=== PATIENT | female | born 1980 | race Caucasian/White ===

== ENCOUNTER 2017-12-12 17:47 | Inpatient (IN) | payer MEDICARE, OTHER ==
[~2017-12-12] VITALS: Ht 170.2 cm; Wt 156.0 kg
[2017-12-12] MEDS ORDERED: METH10TA2 PO (18:10)
[2017-12-12] MEDS ORDERED: DIAZ10TA PO (18:10)
[2017-12-12] MEDS ORDERED: CARI350T PO (18:10)
[2017-12-12] MEDS ORDERED: OXYC-133 PO (18:10)
[2017-12-12] MEDS ORDERED: HYDROMORPHONE 1 MG/1 ML DISP.SYRIN IV ONE ×2 (19:15→21:30)
[2017-12-12 19:39] LABS: BASOPHILS # (AUTO) 0.1 K/uL (0.0-8.0); BASOPHILS % (AUTO) 0.5 % (0.0-2.0); EOSINOPHILS # (AUTO) 0.1 K/uL (0.0-0.7); EOSINOPHILS % (AUTO) 0.8 % (0.0-7.0); HEMATOCRIT 40.8 % (31.2-41.9); HEMOGLOBIN 13.6 g/dL (10.9-14.3); LYMPHOCYTES # (AUTO) 3.5 K/uL (20.0-40.0); LYMPHOCYTES % (AUTO) 22.6 % (20.5-51.5); MEAN CORPUSCULAR HGB CONC 33 g/dL (32.3-35.6); MEAN CORPUSCULAR VOLUME 86.8 fL (75.5-95.3); MONOCYTES # (AUTO) 0.8 K/uL (2.0-10.0); MONOCYTES % (AUTO) 5.4 % (0.0-11.0); NEUTROPHILS % (AUTO) 70.7 % (38.5-71.5); PLATELET COUNT (AUTO) 350 K/uL (179-408); WHITE BLOOD COUNT (AUTO) 15.5 K/uL (3.8-11.8)
--- NOTE | 2017-12-12 19:45 | NUR ---
Xray at bedside.
[2017-12-12 19:46] LABS: CREATININE 0.9 mg/dL (0.6-1.3); POTASSIUM 4.2 mmol/L (3.5-5.1)
[2017-12-12] MEDS ORDERED: HYDROMORPHONE 2 MG/1 ML DISP.SYRIN ONE ×2 (19:50→22:01)
--- NOTE | 2017-12-12 19:52 | NUR ---
Ultrasound at bedside.
[2017-12-12 19:58] LABS: *BILIRUBIN,URIN NEGATIVE (NEGATIVE); *BLOOD, URINE NEGATIVE (NEGATIVE); *CLARITY,URINE SLIGHTLY CLOUDY (CLEAR); *COLOR,URINE YELLOW (YELLOW); *KETONES,URINE NEGATIVE (NEGATIVE); *PROTEIN,URINE NEGATIVE (NEGATIVE); *UROBILINOGEN,URINE 0.2 E.U./dl (NORMAL); LEUKOCYTE ESTERASE ,URINE NEGATIVE (NEGATIVE); NITRITE, URINE NEGATIVE (NEGATIVE); UGLUCOSE NEGATIVE (NEGATIVE)
[2017-12-12 19:59] LABS: BILIRUBIN,DIRECT 0.1 mg/dL (0.0-0.2); BILIRUBIN,TOTAL 0.4 mg/dL (0.2-1.0); TOTAL PROTEIN, SERUM 7.2 g/dL (6.4-8.2)
[2017-12-12 20:06] LABS: RBC,URINE 0-3 /HPF (0-3)
[2017-12-12 20:07] LABS: BACTERIA,URINE MODERATE /HPF (NONE SEEN); MUCUS,URINE MODERATE /LPF (0-FEW); SQUAMOUS EPITHELIAL CELL,UR MANY /HPF (NONE SEEN); WBC,URINE 0-3 /HPF (0-3)
--- NOTE | 2017-12-12 21:32 | NUR ---
PAGED Ganjiwang FOR PANEL CALL.
[2017-12-12] MEDS ORDERED: METHADONE HCL 10 MG TABLET PO PRN (22:45)
[2017-12-12] MEDS ORDERED: TEMAZEPAM 15 MG CAPSULE PO PRN (22:45)
--- NOTE | 2017-12-13 00:38 | NUR ---
Report given to Enid DE [facility] Meds[facility].
--- NOTE | 2017-12-13 01:00 | NUR ---
RECEIVED PT FROM ER VIA [employer] [facility]RNEY. PT IS AWAKE,ALERT , AND ORIENTEDX4. PT ADMITTED TO MED-SURG. ADMISSION PROCESS AND CARE PLAN INITIATED. FPC ASSESSMENT DONE. SAFETY AND COMFORT PROVIDED. CALL LIGHT WITHIN REACH. WILL CONTINUE TO MONITOR.
[2017-12-13 01:08] VITALS: BP 205/110
[2017-12-13] MEDS: OXYCODONE/APAP 5-325 MG TABLET PO PRN ×3 (01:12→18:36)
[2017-12-13] MEDS: ONDANSETRON 4 MG/2 ML VIAL IV PRN ×2 (01:12→09:32)
[2017-12-13] MEDS ORDERED: NICOTINE 21 MG/24HR PATCH TD ONE (02:00)
--- NOTE | 2017-12-13 04:28 | NUR ---
PT BLOOD PRESSURE WAS 186/108. NOTIFY VIDEO PRODUCER. LYN LANDERS NP ORDERED HYDRALAZINEIV 10MG. PT STABLE. NO ACUTE DISTRESS. SAFETY PROVIDED. WILL JOYAUE TO MONITOR.
[2017-12-13] MEDS ORDERED: hydrALAZINE HCL 20 MG/1 ML VIAL IV PRN ×2 (04:30→07:30)
[2017-12-13 04:33] VITALS: BP 186/108
[2017-12-13] MEDS ORDERED: hydrALAZINE HCL 20 MG/1 ML VIAL ONE (05:29)
--- NOTE | 2017-12-13 05:32 | NUR ---
AWAITING MEDICATION. [employer] AX CONSULTANT IS AWARE.
[2017-12-13 06:13] LABS: BASOPHILS # (AUTO) 0.1 K/uL (0.0-8.0); BASOPHILS % (AUTO) 0.8 % (0.0-2.0); EOSINOPHILS % (AUTO) 0.5 % (0.0-7.0); HEMATOCRIT 38.4 % (31.2-41.9); HEMOGLOBIN 12.9 g/dL (10.9-14.3); LYMPHOCYTES # (AUTO) 1.9 K/uL (20.0-40.0); LYMPHOCYTES % (AUTO) 19.3 % (20.5-51.5); MEAN CORPUSCULAR HEMOGLOBIN 28.8 uug (24.7-32.8); MEAN CORPUSCULAR HGB CONC 34 g/dL (32.3-35.6); MEAN CORPUSCULAR VOLUME 85.5 fL (75.5-95.3); MONOCYTES # (AUTO) 0.5 K/uL (2.0-10.0); MONOCYTES % (AUTO) 5.3 % (0.0-11.0); NEUTROPHILS # (AUTO) 7.3 K/uL (1.8-8.9); NEUTROPHILS % (AUTO) 74.1 % (38.5-71.5); PLATELET COUNT (AUTO) 309 K/uL (179-408); RED BLOOD CELL COUNT(AUTO) 4.49 MIL/uL (3.63-4.92); WHITE BLOOD COUNT (AUTO) 9.8 K/uL (3.8-11.8)
[2017-12-13] MEDS: PANTOPRAZOLE SODIUM 40 MG TABLET.DR PO SCH (06:14)
[2017-12-13] MEDS: ACETAMINOPHEN 325 MG TABLET PO PRN ×2 (06:14→23:51)
[2017-12-13 06:30] LABS: BILIRUBIN,TOTAL 0.5 mg/dL (0.2-1.0); CREATININE 0.9 mg/dL (0.6-1.3); PHOSPHOROUS 4.2 mg/dL (2.5-4.9); TOTAL PROTEIN, SERUM 6.6 g/dL (6.4-8.2)
[2017-12-13 06:33] LABS: THYROID STIMULATING HORMONE 1.747 mIU/mL (0.358-3.740)
--- NOTE | 2017-12-13 06:36 | NUR ---
PT SLEPT THROUGHOUT THE SHIFT. PT SHOWS NO SIGNS OF DISTRESS. IV INTACT. PRESCRIBED MEDICATION GIVEN AND PT TOLERATED IT WELL. PT STABLE PT GIVEN HYDRALAZINE AFTER 1 HOUR PT BLOOD PRESSURE DROPPED TO 142/93. SAFETY AND COMFORT PROVIDED. ALL NEEDS ARE MET. WILL ENDORSE ACCORDINGLY TO DAYSHIFT NURSE.
--- NOTE | 2017-12-13 07:20 | NUR ---
RECEIVED PT SLEEPING, NO S/SX OF SOB ,PAIN, DISTRESS OR DISCOMFORT.
[2017-12-13] MEDS ORDERED: TEMAZEPAM 15 MG CAPSULE PO PRN (07:30)
--- NOTE | 2017-12-13 09:20 | NUR ---
[employer] HEAD INSPECTOR AWARE OF PT HIGH BP 197/92, ORDERED CATAPRES 0.2 MG PO Q8HRS PRN AND NORVASC 5 MG PO DAILY
[2017-12-13] MEDS: CARISOPRODOL 350 MG TABLET PO SCH ×3 (09:29→16:36)
--- NOTE | 2017-12-13 09:30 | NUR ---
PT COMPLIANT WITH MEDICATIONS. GAVE PT ZOFRAN NOTED WITH NAUSEA AND VOMITING. PT REFUSED REGULAR DIET, ORDERED PT A FRUIT SALAD AND YOGURT FROM KITCHEN.
[2017-12-13] MEDS: AMLODIPINE 5 MG TABLET PO SCH (09:44)
[2017-12-13] MEDS ORDERED: HYDROMORPHONE 1 MG/1 ML DISP.SYRIN IV PRN (10:30)
[2017-12-13 11:12] VITALS: BP 177/80
[2017-12-13] MEDS: HYDROMORPHONE 2 MG/1 ML DISP.SYRIN IV PRN ×2 (12:05→20:25)
[2017-12-13] MEDS: CLONIDINE HCL 0.2 MG TABLET PO PRN ×2 (12:16→16:36)
--- NOTE | 2017-12-13 15:11 | NUR ---
VERBAL ORDER FROM DR Duong ZARAGOZA: STAT D-DIMER, XARELTO 15MG PO BID AND RETRIEVE RECORDS FROM [facility]
[2017-12-13 15:13] VITALS: BP 166/105
--- NOTE | 2017-12-13 16:00 | NUR ---
PT WAS SEEN LEAVING THE UNIT. SECURITY WAS CALLED TO MONITOR HER WHEREABOUTS
--- NOTE | 2017-12-13 16:20 | NUR ---
PT WAS SEEN COMING OUT FROM DOWNSTAIRS, PT WAS ASKED IF SHE WAS SMOKING, PT STATED SHE WAS. INFORMED PT THAT SHE IS NOT ALL OWED TO LEAVE THE MED-SURG FLOOR. PT WAS ALSO ASKED TO HAND OVER HER CIGARETTES AND SENIOR MAINTENANCE MACHINIST
--- NOTE | 2017-12-13 16:39 | NUR ---
PT HANDED OVER A PACK OF [employer] CIGARETTES AND A BLUE CONSUMER ATTORNEY. BAG WILL BE PLACED IN THE HIDE PULLER DRAWER.
[2017-12-13] MEDS: RIVAROXABAN 15 MG TABLET PO SCH (18:34)
[2017-12-13 18:37] VITALS: BP 143/68
--- NOTE | 2017-12-13 19:29 | NUR ---
RECEIVED PT AWAKE, ALERT, AND ORIENTEDX4. PT SHOWS NO SIGNS OF DISTRESS. IV INTACT AND PATENT. CALL LIGHT WITHIN REACH. BED ALARM ON AND IN LOW POSITION, SIDE RAILS UPX2.WILL CONTINUE TO MONITOR.
[2017-12-13 20:00] VITALS: BP 139/71
[2017-12-13] MEDS: LOSARTAN POTASSIUM 50 MG TABLET PO SCH (20:14)
[2017-12-13] MEDS: DIAZEPAM 10 MG TABLET PO SCH (20:14)
[2017-12-14] VITALS: BP 135/68
[2017-12-14] MEDS: HYDROMORPHONE 2 MG/1 ML DISP.SYRIN IV PRN ×4 (03:16→22:32)
--- NOTE | 2017-12-14 06:11 | NUR ---
PT SLEPT THROUGHOUT THE SHIFT. PT SHOWS NO SIGNS OF DISTRESS. PT IV INTACT AND PATENT. PRESCRIBED MEDICATION GIVEN AND PT TOLERATED IT WELL.PAIN MANAGEMENT DONE.PT GIVEN DILAUDID 2024H AND 315H FOR SEVERE PAIN ON HER LEGS AND RIGHT FLANK. SAFETY AND COMFORT PROVIDED. ALL NEEDS ARE MET. WILL ENDORSE ACCORDINGLY TO INCOMING DAYSHIFT NURSE.
[2017-12-14] MEDS: PANTOPRAZOLE SODIUM 40 MG TABLET.DR PO SCH (06:24)
[2017-12-14] MEDS: NICOTINE 21 MG/24HR PATCH TD SCH (08:07)
[2017-12-14] MEDS: CARISOPRODOL 350 MG TABLET PO SCH ×3 (08:07→16:20)
[2017-12-14] MEDS: LOSARTAN POTASSIUM 50 MG TABLET PO SCH ×2 (08:08→21:30)
[2017-12-14] MEDS: AMLODIPINE 5 MG TABLET PO SCH (08:08)
[2017-12-14] MEDS: RIVAROXABAN 15 MG TABLET PO SCH ×2 (08:11→17:16)
[2017-12-14] MEDS ORDERED: SWABABLE VALVE TRANSFER SET EA MC ONE (09:28)
[2017-12-14] MEDS ORDERED: IV NORMAL SALINE 250 ML IV ONE (09:28)
[2017-12-14] MEDS ORDERED: IOHEXOL 350 100 ML INFUS..BTL ONE (09:28)
[2017-12-14 11:16] VITALS: BP 148/75
--- NOTE | 2017-12-14 11:50 | NUR ---
Pt left via wheelchair to radiology for a CTA of the chest and lower extremities venous graft. A&O times four. No pain, distress, discomfort or SOB noted.
--- NOTE | 2017-12-14 12:25 | NUR ---
Pt came back from radiology
[2017-12-14] MEDS: OXYCODONE/APAP 5-325 MG TABLET PO PRN (12:48)
--- NOTE | 2017-12-14 13:00 | NUR ---
Informed by pt. that she spoke with ARMATURE REPAIRER about going off hospital premisses.
--- NOTE | 2017-12-14 13:15 | NUR ---
Contacted PACKAGING INSPECTOR Pancho Lawrence to verify that the pt is able to go off hospital med-surg unit and go outside. PACKAGING INSPECTOR stated that is was correct information. Also verbally communicated it with the charge nurse
--- NOTE | 2017-12-14 14:20 | NUR ---
Charge nurse called GEORGES Lawrence to inform him that per hospital policy pt is not to leave the med-surg unit. Per charge nurse LUBRICATOR GRANULATOR will talk to and inform the pt.
[2017-12-14 15:30] VITALS: BP 118/73
[2017-12-14 19:23] VITALS: BP 148/73
[2017-12-14] MEDS: DIAZEPAM 10 MG TABLET PO SCH (21:30)
[2017-12-15 03:44] VITALS: BP 148/111
[2017-12-15] MEDS: HYDROMORPHONE 2 MG/1 ML DISP.SYRIN IV PRN ×2 (05:00→11:18)
[2017-12-15 06:00] VITALS: BP 136/73
[2017-12-15] MEDS: PANTOPRAZOLE SODIUM 40 MG TABLET.DR PO SCH (06:09)
--- NOTE | 2017-12-15 06:16 | NUR ---
PATIENT SLEPT INTERMITTENTLY DURING THE SHIFT. NO SOB NOTED. PAIN MEDICATION ADMINISTERED ON C/O LEFT THIGH PAIN. KEPT LOWER EXTREMITIES ELEVATED. NO BM DURING THE SHIFT.
[2017-12-15] MEDS: RIVAROXABAN 15 MG TABLET PO SCH (08:29)
[2017-12-15] MEDS: CARISOPRODOL 350 MG TABLET PO SCH ×2 (08:31→12:58)
[2017-12-15] MEDS: NICOTINE 21 MG/24HR PATCH TD SCH (08:31)
[2017-12-15] MEDS: LOSARTAN POTASSIUM 50 MG TABLET PO SCH (08:42)
[2017-12-15] MEDS: AMLODIPINE 5 MG TABLET PO SCH (08:42)
[2017-12-15] MEDS: OXYCODONE/APAP 5-325 MG TABLET PO PRN (09:33)
[2017-12-15 09:34] VITALS: BP 157/92
[2017-12-15 11:20] VITALS: BP 145/69
--- NOTE | 2017-12-15 12:51 | NUR ---
DISCHARGE PROTOCOL FOLLOWED, PATIENT WAITING FOR TO COME PICK HER UP. WILL GO OVER DISCHARGE INSTRUCTIONS AND EDUCATION WITH BOTH PRESENT
--- NOTE | 2017-12-15 14:24 | NUR ---
DISCHARGE PROTOCOL FOLLOWED, EDUCATION PROVIDED TO BOTH PATIENT AND SPOUSE. BOTH VERBALIZED UNDERSTANDING. BOTH IVs removed with no redness or irritation noted. all belongings accounted for and sent home with patient.
== END 2017-12-15 14:15 | disposition home or self-care (01) | DRG 300 ==
LOC: ER 17:49 → MED 12-13 00:06
PROVIDERS: ADMIT Nurse Practitioner Acute Care; ATTEND Nurse Practitioner Acute Care
DX: I87.2 Venous insufficiency (chronic) (peripheral) (principal); N39.0 Urinary tract infection, site not specified; Z68.43 Body mass index [BMI] 50.0-59.9, adult; E44.0 Moderate protein-calorie malnutrition; F13.20 Sedative, hypnotic or anxiolytic dependence, uncomplicated; I89.0 Lymphedema, not elsewhere classified; G89.29 Other chronic pain; M79.7 Fibromyalgia; N80.9 Endometriosis, unspecified; G43.909 Migraine, unspecified, not intractable, without status migrainosus; Z90.722 Acquired absence of ovaries, bilateral; F17.210 Nicotine dependence, cigarettes, uncomplicated; E66.01 Morbid (severe) obesity due to excess calories; Z71.3 Dietary counseling and surveillance; E88.09 Other disorders of plasma-protein metabolism, not elsewhere classified; G47.33 Obstructive sleep apnea (adult) (pediatric); Z86.718 Personal history of other venous thrombosis and embolism; I10 Essential (primary) hypertension; Z79.891 Long term (current) use of opiate analgesic; M54.5 Low back pain; T14.90XS Injury, unspecified, sequela; X58.XXXS Exposure to other specified factors, sequela; M19.90 Unspecified osteoarthritis, unspecified site
CPT/HCPCS: 36415; 70030-TC; 71045; 71275; 73706; 83735; 84100; 84443; 84703; 85025; 85730; 93005; 93307; A4663; J0360; J1170; J2405; J7050; Q9967